=== PATIENT | male | born 1980 | race Caucasian/White ===

== ENCOUNTER 2022-01-02 11:49 | Emergency (ER) | payer SELFPAY ==
--- NOTE | 2022-01-02 12:52 | ER ---
Nurse's Notes [facility] Name: Ortega Davalos Age: 41 yrs Sex: Male : 1980 Arrival Date: 01/02/2022 Time: 11:52 Bed 9 Private MD: Diagnosis: Superficial Thickness Burn of the Foot Presentation: 01/02 12:15 Chief complaint: Patient states: States sun burn to ALEJANDRA feet x 5 days, states ALEJANDRA feet vg1 swelling and "want to make sure its nothing too serious bc I am also diabetic". Coronavirus screen: Vaccine status: Patient reports receiving the 2nd dose of the covid vaccine. Client denies travel out of the [place] in the last 14 days. Ebola Screen: Patient denies exposure to infectious person. Patient denies travel to an Ebola-affected area in the 21 days before illness onset. Initial Sepsis Screen: Does the patient meet any 2 criteria? No. Patient's initial sepsis screen is negative. Does the patient have a suspected source of infection? No. Patient's initial sepsis screen is negative. Risk Assessment: Do you want to hurt yourself or someone else? Patient reports no desire to harm self or others. Onset of symptoms was December 28, 2021. 12:15 Method Of Arrival: Ambulatory vg1 12:15 Acuity: DELROY 4 vg1 Triage Assessment: 12:16 General: Appears in no apparent distress. uncomfortable, Behavior is calm, cooperative. vg1 Pain: Complains of pain in right foot and left foot. Historical: - Allergies: 12:16 No Known Allergies; vg1 - Home Meds: 12:16 lisinopril Oral [Active]; Buspirone Oral [Active]; Metformin Oral [Active]; Insulin vg1 Lantus [Active]; gabapentin oral [Active]; Prozac Oral [Active]; - PMHx: 12:16 Diabetes mellitus; Anxiety; Depressive disorder; Bipolar disorder; PTSD; vg1 - Immunization history:: Client reports receiving the 2nd dose of the Covid vaccine. - Social history:: Smoking status: Patient reports the use of cigarette tobacco products, smokes one pack cigarettes per day. Screenin:02 Abuse screen: Denies threats or abuse. Denies injuries from another. Nutritional ss screening: No deficits noted. Tuberculosis screening: Never had TB. Fall Risk None identified. Assessment: 13:02 General: Appears in no apparent distress. comfortable, Behavior is calm, cooperative. ss Neuro: Level of Consciousness is awake, alert, obeys commands, Oriented to person, place, time, situation. Respiratory: Airway is patent Respiratory effort is even, unlabored. Derm: Skin is intact, is healthy with good turgor, Skin is pink, warm \\T\\ dry. normal. Musculoskeletal: Range of motion: intact in all extremities. Vital Signs: 12:15 BP 127 / 91; Pulse 89; Resp 16; Temp 97.3; Pulse Ox 97% on R/A; Weight 83.91 kg; Height vg1 6 ft. 0 in. (182.88 cm); Pain 8/10; 12:15 Body Mass Index 25.09 (83.91 kg, 182.88 cm) vg1 ED Course: 11:52 Patient arrived in ED. mr 12:16 Triage completed. vg1 12:16 Arm band placed on. vg1 12:19 Garry Howell PA is PHCP. [facility] 12:19 Jose A Beasley MD is Attending Physician. [facility] 12:35 Valarie Reed, BRIGID is Primary Nurse. ap3 12:52 Carlito Elias DPM is Referral Physician. [facility] 13:02 Patient has correct armband on for positive identification. 13:02 No provider procedures requiring assistance completed. Patient did not have IV access ss during this emergency room visit. Administered Medications: 12:38 Not Given (pt utdd): Tetanus-Diphtheria Toxoid Adult 0.5 ml IM once ap3 Outcome: 12:52 Discharge ordered by MD. [facility] 13:02 Discharged to home ambulatory, with family. ss 13:02 Condition: good 13:02 Discharge instructions given to patient, family, Instructed on discharge instructions, follow up and referral plans. medication usage, Demonstrated understanding of instructions, follow-up care, medications, Prescriptions given X 1. 13:03 Patient left the ED. ss Signatures: Garry Howell PA PA jmm Jennifer Ramsey Shelby, RN RN ss Valarie Reed, BRIGID RN ap3 Anusha Oneal RN RN vg1 Corrections: (The following items were deleted from the chart) 12:21 12:15 Acuity: DELROY 3 vg1 vg1
--- NOTE | 2022-01-02 12:52 | EDPHYS ---
Physician Documentation [facility] Name: Ortega Davalos Age: 41 yrs Sex: Male : 1980 Arrival Date: 01/02/2022 Time: 11:52 Bed 9 Private MD: ED Physician Jose A Beasley HPI: 01/02 12:33 This 41 yrs old Male presents to ER via Ambulatory with complaints of Feet Swelling. jmm 12:33 The patient presents with pain. Onset: The symptoms/episode began/occurred gradually, 5 jmm day(s) ago. Modifying factors: The symptoms are alleviated by nothing. the symptoms are aggravated by nothing. This is a 41 year old male with a history of DM, depression, bipolar that presents to the ED with complaints of lower extremity pain bilaterally. [place] Patient denies fever or chills. Patient has applied abx ointment. Patient is UTD on tetanus immunization. . Historical: - Allergies: 12:16 No Known Allergies; vg1 - Home Meds: 12:16 lisinopril Oral [Active]; Buspirone Oral [Active]; Metformin Oral [Active]; Insulin vg1 Lantus [Active]; gabapentin oral [Active]; Prozac Oral [Active]; - PMHx: 12:16 Diabetes mellitus; Anxiety; Depressive disorder; Bipolar disorder; PTSD; vg1 - Immunization history:: Client reports receiving the 2nd dose of the Covid vaccine. - Social history:: Smoking status: Patient reports the use of cigarette tobacco products, smokes one pack cigarettes per day. ROS: 12:33 Constitutional: Negative for fever, chills, and weight loss, Cardiovascular: Negative jmm for chest pain, palpitations, and edema, Respiratory: Negative for shortness of breath, cough, wheezing, and pleuritic chest pain. 12:33 MS/extremity: Positive for pain. 12:33 All other systems are negative. Exam: 12:33 Constitutional: This is a well developed, well nourished patient who is awake, alert, jmm and in no acute distress. Head/Face: atraumatic. Eyes: EOMI, no conjunctival erythema appreciated ENT: Moist Mucus Membranes Neck: Trachea midline, Supple Chest/axilla: Normal chest wall appearance and motion. Cardiovascular: Regular rate and rhythm. No edema appreciated Respiratory: Normal respirations, no respiratory distress appreciated Abdomen/GI: Non distended, soft Back: Normal ROM 12:33 Skin: erythema appreciated to the dorsalis surface of the feet bilaterally, no induration appreciated, compartments are soft, full dorsalis pulse, NVI. 12:33 Neuro: Orientation: is normal, Mentation: is normal, Memory: is normal. Vital Signs: 12:15 BP 127 / 91; Pulse 89; Resp 16; Temp 97.3; Pulse Ox 97% on R/A; Weight 83.91 kg; Height vg1 6 ft. 0 in. (182.88 cm); Pain 8/10; 12:15 Body Mass Index 25.09 (83.91 kg, 182.88 cm) vg1 MDM: 12:33 Patient medically screened. [facility] 12:33 Data reviewed: vital signs, nurses notes. Counseling: I had a detailed discussion with ashlee the patient and/or guardian regarding: the historical points, exam findings, and any diagnostic results supporting the discharge/admit diagnosis, the need for outpatient follow up, to return to the emergency department if symptoms worsen or persist or if there are any questions or concerns that arise at home. Refusal of service: The patient/guardian displays adequate decision making capability and despite a detailed discussion of alternatives, benefits, risks, and consequences refuses: all lab tests. Administered Medications: 12:38 Not Given (pt utdd): Tetanus-Diphtheria Toxoid Adult 0.5 ml IM once ap3 Disposition: 18:49 Co-signature as Attending Physician, Jose A Beasley MD. rn Disposition Summary: 01/02/22 12:52 Discharge Ordered Location: Home [facility] Condition: Stable [facility] Diagnosis - Superficial Thickness Burn of the Foot [facility] Followup: [facility] - With: Private Physician - When: 2 - 3 days - Reason: Recheck today's complaints, Continuance of care, Re-evaluation by your physician Followup: [facility] - With: Carlito Elias DPM - When: 2 - 3 days - Reason: Recheck today's complaints, Continuance of care, Re-evaluation by your physician Discharge Instructions: - Discharge Summary Sheet [facility] - Burn Care, Adult [facility] Forms: - Medication Reconciliation Form [facility] - Thank You Letter [facility] - Antibiotic Education [facility] - Prescription Opioid Use jmm Prescriptions: - Cephalexin 500 mg Oral Capsule - take 1 capsule by ORAL route every 6 hours for 10 days; 40 capsule; Refills: 0, jmm Product Selection Permitted Signatures: Garry Howell PA PA jmm Nieto, Roman, MD MD rn Jm, BRIGID Tavares RN vg1 Valarie Reed RN ap3
[2022-01-02 13:48] VITALS: BP 127/91; TEMP 97.3; O2SAT 97
== END 2022-01-02 13:03 | disposition home or self-care (01) ==
LOC: ER 11:49
DX: T25.122A Burn of first degree of left foot, initial encounter (principal); T25.121A Burn of first degree of right foot, initial encounter; T31.0 Burns involving less than 10% of body surface; X19.XXXA Contact with other heat and hot substances, initial encounter; Y92.832 Beach as the place of occurrence of the external cause; E11.9 Type 2 diabetes mellitus without complications; F31.9 Bipolar disorder, unspecified; F17.210 Nicotine dependence, cigarettes, uncomplicated
CPT/HCPCS: 99282